=== PATIENT | male | born 1950 | race Caucasian/White ===

== ENCOUNTER → 2023-06-13 | Day surgery (SDC) | payer MEDICARE, BC ==
[~2023-06-13] MED LIST: Albuterol 6.7 GM Inhaler INH ONE; Lidocaine 2% 100 MG/5 ML Syringe IVPUSH ONE; Propofol 200 MG/20 ML SDV IV ONE; Sodium Chloride 0.9% 10 ML Syringe FLUSH PRN
[2023-06-13] MEDS: Lactated Ringers 1,000 ML IV SCH (07:56)
[2023-06-13] MEDS: Simethicone Drops 40 MG/0.6 ML 30 ML Bottle ONE (08:50)
== END ==
LOC: FB.SDS 06:45
PROVIDERS: ATTEND Surgery
DX: Z12.11 Encounter for screening for malignant neoplasm of colon (principal); D12.6 Benign neoplasm of colon, unspecified; K57.30 Diverticulosis of large intestine without perforation or abscess without bleeding; J45.909 Unspecified asthma, uncomplicated; E78.5 Hyperlipidemia, unspecified; Z79.899 Other long term (current) drug therapy; Z88.1 Allergy status to other antibiotic agents; Z88.8 Allergy status to other drugs, medicaments and biological substances
CPT/HCPCS: 88305; A9270-GY; J2704; J7120

== ENCOUNTER 2023-12-09 21:27 | Emergency (ER) | payer MEDICARE, BC | END 2023-12-09 22:25 | disposition home or self-care (01) | LOC: FB.ED 21:27 | DX: S63.297A Dislocation of distal interphalangeal joint of left little finger, initial encounter (principal); J45.909 Unspecified asthma, uncomplicated; E78.00 Pure hypercholesterolemia, unspecified; Z79.899 Other long term (current) drug therapy; Z88.1 Allergy status to other antibiotic agents; Z88.8 Allergy status to other drugs, medicaments and biological substances; Z91.048 Other nonmedicinal substance allergy status; W23.1XXA Caught, crushed, jammed, or pinched between stationary objects, initial encounter | CPT/HCPCS: 26605; 26770; 73140-F4; 99283; 99283-25 ==